=== PATIENT | male | born 1990 | race Caucasian/White ===

== ENCOUNTER 2018-02-25 21:55 | Emergency (ER) | payer OTHER ==
[2018-02-25 22:01] VITALS: BP 125/83; PULSE 57; TEMP 98.4; BMI 24.0
--- NOTE | 2018-02-25 22:01 | PDOC ---
History of Present Illness - General Chief Complaint: Pain, Acute Stated Complaint: ABD PAIN Time Seen by Provider: 02/25/18 22:00 History Source: Patient Exam Limitations: No Limitations - History of Present Illness Initial Comments: 02/25/18 22:42 This is a 27 yo M who presents to the ER with a complaint of abdominal pain Pt states that his symptoms began approximately 1.5 weeks ago He noted intermittent uretheral pain No hematuria, no dysuria Several days ago, he noted lower abdominal pain and a pain the "went down" to his testicles and yesterday noted left flank pain No fevers or chills No vomiting or diarrhea No prior stds but he could have recently been exposed to an std As a result, he was seen yesterday at a clinic and had a 10 panel test He is awaiting the results PMH: denies PSH: denies Meds: denies ALL: Sulfa --> rash Social: denies drug use, FH: non contributory GENERAL/CONSTITUTIONAL: No: fever, chills, weakness, loss of appetite. CARDIOVASCULAR: No: chest pain RESPIRATORY: No: cough, shortness of breath GASTROINTESTINAL: Yes: suprapubic pain No: nausea, vomiting, diarrhea GENITOURINARY: Yes: dysuria, No: hematuria, frequency, urgency, flank pain. MUSCULOSKELETAL: No: back pain, neck pain, joint pain, muscle swelling or pain SKIN: No: lesions, pallor, rash or easy bruising. NEUROLOGIC: No: headache, vertigo, paresthesias, weakness PE: GENERAL: The patient is in no acute distress. HEAD: Normal EYES: PERRLA, EOMI, sclera anicteric, conjunctiva clear. ENT: Ears normal, nares patent, oropharynx clear without exudates. Moist mucous membranes. NECK: Normal range of motion, supple LUNGS: Breath sounds equal, clear to auscultation bilaterally. No wheezes, and no crackles. HEART:Regular rate and rhythm, normal S1 and S2 without murmur, rub or gallop. ABDOMEN: Soft, nontender, normoactive bowel sounds. No guarding, no rebound. : Circumcised, no testicular swelling, no erythema, no discharge, no lesions no EXTREMITIES: Normal range of motion, no edema. No clubbing or cyanosis. No erythema, or tenderness. NEUROLOGICAL: Cranial nerves II through XII grossly intact. Normal speech. No focal neurological deficits. MUSCULOSKELETAL: Back non-tender to palpation, no CVA tenderness SKIN: Warm, Dry, normal turgor, no rashes or lesions noted. 02/25/18 23:01 Past History - Past Medical History Allergies/Adverse Reactions: Allergies Allergy/AdvReac Type Severity Reaction Status Date / Time Sulfa (Sulfonamide Allergy Verified 02/25/18 21:56 Antibiotics) Home Medications: Ambulatory Orders NK [No Known Home Medication] 02/25/18 Medical Decision Making - Medical Decision Making 02/25/18 22:52 Pt presents to the ER with urinary symptoms and ? flank pain DD: UTI, pyelonephritis, kidney stone, STD, testicular torison/hydrocele Pt has no CVA tenderness to suggest Pyelonephritis. Urine culture pending No evidence of torsion/hydrocele etc - nml cremasteric reflex, no testicular pain or swelling STD testing in progress Laboratory Tests 02/25/18 22:05 Urine Blood Negative Urine Nitrite Negative Ur Leukocyte Esterase Negative No hematuria making stone less likely 02/25/18 23:29 CT no stone Non specific cyst noted - A subtle nonspecific 1 cm left renal intra-cortical hypodense focus is seen which could represent a cyst, must be clinically correlated. A nonspecific 0.7 cm now sclerotic focus is noted in the right acetabulum ventrally probably representing incidental bone island. Correlate with MRI Pt given copy of CT Pt aware that he will need to follow up with his doctor within the next 2-3 months for repeat imaging Symptoms possibly due to STD vs musculoskeletal pain Will discharge to home Will ask pt to follow up with PMD next week He will get results from his STD testing tomorrow Return to the ER for any other concerns or complaints Motrin/Tylenol for pain 02/25/18 23:32 02/26/18 01:06 02/26/18 01:11 *DC/Admit/Observation/Transfer Diagnosis at time of Disposition: Abdominal pain Qualifiers: Abdominal location: lower abdomen, unspecified Qualified Code(s): R10.30 - Lower abdominal pain, unspecified - Discharge Dispostion Disposition: HOME Condition at time of disposition: Stable Decision to Admit order: No - Referrals - Patient Instructions Printed Discharge Instructions: DI for Abdominal Pain-Adult - Post Discharge Activity
[2018-02-25 22:19] LABS: PH,URINE 5.5 (4.5-8); URINE APPEARANCE Clear; URINE BILIRUBIN Negative (NEGATIVE); URINE COLOR Yellow; URINE GLUCOSE (UA) Negative (NEGATIVE); URINE KETONE Trace (NEGATIVE); URINE LEUK ESTERASE Negative (NEGATIVE); URINE NITRITE Negative (NEGATIVE); URINE PROTEIN Negative (NEGATIVE); URINE UROBILINOGEN 0.2 (0.2-1.0)
== END 2018-02-25 23:41 | disposition home or self-care (01) ==
LOC: FER 21:55
DX: R10.30 Lower abdominal pain, unspecified (principal)
CPT/HCPCS: 74176; 81003; 99282-25

== ENCOUNTER 2020-06-13 10:56 | Emergency (ER) | payer OTHER ==
[2020-06-13 10:59] VITALS: BP 117/76; PULSE 85; TEMP 99.1; BMI 24.3
== END 2020-06-13 11:56 | disposition home or self-care (01) ==
LOC: FER 10:56
DX: S13.4XXA Sprain of ligaments of cervical spine, initial encounter (principal)
CPT/HCPCS: 99283-25